=== PATIENT | male | born 1985 | race Caucasian/White ===

== ENCOUNTER 2018-08-11 19:08 | Emergency (ER) | payer OTHER ==
[2018-08-11] MEDS ORDERED: DIAZEPAM 2 MG TABLET PO ONE (19:38)
--- NOTE | 2018-08-11 19:40 | ER Document Report ---
ED General - General Chief Complaint: Chest Wall Pain Stated Complaint: INTERMITTENT CHEST TIGHTNESS/ANXIETY Time Seen by Provider: 08/11/18 19:38 Mode of Arrival: Ambulatory Information source: Patient TRAVEL OUTSIDE OF THE [place] IN LAST 30 DAYS: No - HPI Patient complains to provider of: Chest pain Onset: Just prior to arrival Onset/Duration: Sudden Quality of pain: Sharp Severity: Moderate Pain Level: 4 Associated symptoms: Chest pain Exacerbated by: Other - Stress Relieved by: Denies Similar symptoms previously: Yes Recently seen / treated by doctor: Yes Notes: Patient is a 33-year-old male brought to the emergency room by EMS for complaints of chest pain that started suddenly while at home, patient reports multiple stressors recently and has a history he does not smoke cigarettes, has no other risk factors for heart disease, and was recently started on Wellbutrin by his primary care provider - Related Data Allergies/Adverse Reactions: No Known Allergies Allergy (Verified 08/11/18 19:17) Past Medical History - General Information source: Patient - Social History Smoking Status: Unknown if Ever Smoked Frequency of alcohol use: None Drug Abuse: None Family History: Reviewed & Not Pertinent Patient has suicidal ideation: No Patient has homicidal ideation: No Renal/ Medical History: Denies: Hx Peritoneal Dialysis - Immunizations Hx Diphtheria, Pertussis, Tetanus Vaccination: Yes Review of Systems - Review of Systems Constitutional: No symptoms reported EENT: No symptoms reported Cardiovascular: Chest pain Respiratory: No symptoms reported Gastrointestinal: No symptoms reported Genitourinary: No symptoms reported Male Genitourinary: No symptoms reported Musculoskeletal: No symptoms reported Skin: No symptoms reported Hematologic/Lymphatic: No symptoms reported Neurological/Psychological: Anxiety -: Yes All other systems reviewed and negative Physical Exam - Vital signs Vitals: Temp Pulse Resp BP Pulse Ox 97.8 F 111 H 24 H 138/90 H 100 08/11/18 19:32 08/11/18 19:32 08/11/18 19:32 08/11/18 19:32 08/11/18 19:32 Interpretation: Normal - General General appearance: Appears well, Alert - HEENT Head: Normocephalic, Atraumatic Eyes: Normal Pupils: PERRL - Respiratory Respiratory status: No respiratory distress Chest status: Nontender Breath sounds: Normal Chest palpation: Normal - Cardiovascular Rhythm: Regular Heart sounds: Normal auscultation Murmur: No - Abdominal Inspection: Normal Distension: No distension Bowel sounds: Normal Tenderness: Nontender Organomegaly: No organomegaly - Back Back: Normal, Nontender - Extremities General upper extremity: Normal inspection, Nontender, Normal color, Normal ROM, Normal temperature General lower extremity: Normal inspection, Nontender, Normal color, Normal ROM, Normal temperature, Normal weight bearing. No: Tomas's sign - Neurological Neuro grossly intact: Yes Cognition: Normal Orientation: AAOx4 [place] Coma Scale Eye Opening: Spontaneous [place] Coma Scale Verbal: Oriented [place] Coma Scale Motor: Obeys Commands Vidya Coma Scale Total: 15 Speech: Normal Motor strength normal: LUE, RUE, LLE, RLE Sensory: Normal - Psychological Associated symptoms: Anxious - Skin Skin Temperature: Warm Skin Moisture: Dry Skin Color: Normal Course - Re-evaluation Re-evalutation: 08/11/18 20:34 EKG unremarkable, as his chest x-ray, findings discussed with patient, discharged with prescription for small amount of Valium, advised to follow-up with primary care or return if symptoms worsen, patient acknowledges understanding and agreement with this plan - Vital Signs Vital signs: Temp Pulse Resp BP Pulse Ox 97.8 F 111 H 24 H 138/90 H 100 08/11/18 19:32 08/11/18 19:32 08/11/18 19:32 08/11/18 19:32 08/11/18 19:32 - Diagnostic Test Radiology reviewed: Image reviewed, Reports reviewed - EKG Interpretation by Me EKG shows normal: Sinus rhythm Rate: Normal Rhythm: NSR Discharge - Discharge Clinical Impression: Anxiety Chest pain Qualifiers: Chest pain type: unspecified Qualified Code(s): R07.9 - Chest pain, unspecified Condition: Stable Disposition: HOME, SELF-CARE Instructions: Anxiety ([facility]) Additional Instructions: Follow up with your primary care provider in one to 2 days. Return to the emergency room immediately if symptoms worsen or any additional concerns. Prescriptions: Diazepam [Valium 2 mg Tablet] 1 mg PO BIDP PRN #6 tablet PRN Reason:
--- NOTE | 2018-08-11 20:20 | RADIOLOGY REPORT (SQ) ---
EXAM DESCRIPTION: XR CHEST 2 VIEWS COMPLETED DATE/TME: 08/11/2018 19:38 CLINICAL HISTORY: 33 years, Male, cp Findings: The heart is not enlarged. Lungs are clear. No pneumothorax. No pleural effusions. IMPRESSION: No acute disease.
[2018-08-11 21:12] VITALS: BP 145/77
--- NOTE | 2018-08-12 00:08 | EKG REPORT ---
SEVERITY:- ABNORMAL ECG - SINUS RHYTHM ANTERIOR INFARCT, OLD : Confirmed by: James Mora 12-Aug-2018 00:07:48
== END 2018-08-11 21:12 | disposition home or self-care (01) ==
LOC: ER 19:08
DX: R07.89 Other chest pain (principal); F41.9 Anxiety disorder, unspecified
CPT/HCPCS: 93005; 99284; 71046; 93010; J3490